=== PATIENT | female | born 1955 | race Caucasian/White ===

== ENCOUNTER → 2021-08-30 | Outpatient (CLI) | payer MEDICARE, OTHER | LOC: MAMO 08-21 08:30 → US 08-21 10:00 → MAMO 10:00 → US 10:00 → MAMO 10:53 → US 11:00 | DX: N30.90 Cystitis, unspecified without hematuria (principal); N63.21 Unspecified lump in the left breast, upper outer quadrant | CPT/HCPCS: 76641-LT; 77066; G0279 ==